=== PATIENT | female | born 1985 | race Caucasian/White ===

== ENCOUNTER 2016-10-10 19:54 | Emergency (ER) | payer BC ==
[2016-10-10 20:06] VITALS: BP 152/84; PULSE 95; RESP 16; TEMP 98.2; O2SAT 96
--- NOTE | 2016-10-10 20:11 | EDPHY ---
HPI/HX/ROS/PE/MDM Narrative: CHIEF COMPLAINT: Right ear pain HPI: The patient is a 31-year-old female with a history of multiple prior infections. The patient complains of pain in her right ear began earlier today. [place] got [place] She denies discharge from ear. She denies fever. She denies hearing loss. The patient is currently and on chronic steroids. REVIEW OF SYSTEMS: Aside from elements discussed in the HPI, a comprehensive 10-point review of systems was reviewed and is negative. PMH: , history of ear infections. SOCIAL HISTORY: Denies alcohol or drug abuse. PHYSICAL EXAM: General:Patient is alert, in no acute distress. ENT: Left ear: Unaffected. Right ear: Mild erythema of the TM is noted with some fluid behind the TM. External canal is normal. No discharge. TMs intact. Neuro: Oriented x3. Normal motor function. Normal sensory function. MDM: This patient presents with likely eustachian tube dysfunction causing ear pain. However, given her history of frequent ear infections an asymmetrical erythema and fluid behind the right TM versus the left, I will err on the side of caution and treat the patient with antibiotics. She is allergic to penicillin, so we will choose Zithromax. General Time Seen by Provider: 10/10/16 20:03 Initial Vital Signs: Initial Vital Signs Temperature (C) 36.8 C 10/10/16 20:03 Heart Rate 95 10/10/16 20:03 Respiratory Rate 16 10/10/16 20:03 Blood Pressure 152/84 H 10/10/16 20:03 O2 Sat (%) 96 10/10/16 20:03 O2 Delivery Mode Room Air Allergies/Adverse Reactions: amoxicillin Allergy (Verified 10/10/16 20:06) Penicillins Allergy (Verified 10/10/16 20:06) Home Medications: Medication Instructions Recorded AZITHROMYCIN [Z-PACK] 250 mg PO DAILY #6 tab 10/10/16 Marisol Cooney 10-10 mg Tablet 10/10/16 Progesterone 10/10/16 Departure - Departure Disposition: Home, Routine, Self-Care Clinical Impression: Acute otitis media, Eustachian tube dysfunction Condition: Good Instructions: Otitis Media (ED) Additional Instructions: Use Tylenol as directed. Return to the emergency department for headache, discharge from ear, loss of hearing or other concerns. Referrals: [facility] [Other] - As per Instructions Prescriptions: AZITHROMYCIN [Z-PACK] 250 mg PO DAILY #6 tab
== END 2016-10-10 20:23 | disposition home or self-care (01) ==
LOC: CED 19:54
DX: O99.89 Other specified diseases and conditions complicating pregnancy, childbirth and the puerperium (principal); H66.91 Otitis media, unspecified, right ear; H69.91 Unspecified Eustachian tube disorder, right ear; Z3A.00 Weeks of gestation of pregnancy not specified